=== PATIENT | female | born 1950 | race Caucasian/White ===

== ENCOUNTER → 2017-04-09 | Outpatient (CLI) | payer OTHER, BC | LOC: CIMAGING 13:58 | PROVIDERS: ATTEND Internal Medicine | DX: Z12.31 Encounter for screening mammogram for malignant neoplasm of breast (principal) | CPT/HCPCS: G0202 ==

== ENCOUNTER 2017-04-12 22:45 | Emergency (ER) | payer OTHER ==
[2017-04-12] MEDS ORDERED: ONDANSETRON 4 MG/2 ML VIAL IVP ONE (23:12)
--- NOTE | 2017-04-12 23:19 | CPEKG ---
Heart Rate: 75 RR Interval: 800 P-R Interval: 172 QRSD Interval: 94 QT Interval: 384 QTC Interval: 429 P [place]: 55 QRS [place]: 7 T Wave [place]: 29 EKG Severity - NORMAL ECG - EKG Impression: SINUS RHYTHM Electronically Signed By: Pedro Swanson 14-Apr-2017 21:36:24
[2017-04-12 23:29] LABS: % IMMATURE GRANULYOCYTES 0.5 % (0.0-1.1); ABSOLUTE IMMATURE GRANULOCYTES 0.05 10^3/uL (0.00-0.10); ADD DIFF? NO; ADD MORPH? NO; ADD SCAN? NO; ATYPICAL LYMPHOCYTE FLAG 0 (0-99); FRAGMENT RBC FLAG 0 (0-99); HEMATOCRIT 39.3 % (38.0-47.0); HEMOGLOBIN 13.1 g/dL (12.6-16.3); LEFT SHIFT FLG 0 (0-99); LIPEMIA HEMOLYSIS FLAG 80 (0-99); MEAN CELL HEMOGLOBIN 28.6 pg (27.9-34.1); MEAN CELL HEMOGLOBIN CONCENTR. 33.3 g/dL (32.4-36.7); MEAN CELL VOLUME 85.8 fL (81.5-99.8); MEAN PLATELET VOLUME 10.7 fL (8.7-11.7); PLATELET CLUMPS FLAG 0 (0-99); PLATELET COUNT 278 10^3/uL (150-400); RED BLOOD CELL COUNT 4.58 10^6/uL (4.18-5.33); RED CELL DISTRIBUTION WIDTH 12.6 % (11.5-15.2)
[2017-04-12 23:42] LABS: ALANINE AMINOTRANSFERASE 40 IU/L (9-52); ALBUMIN 4.3 g/dL (3.5-5.0); ALKALINE PHOSPHATASE 97 IU/L (38-126); ANION GAP 17 mEq/L (8-16); ASPARTATE AMINOTRANSFERASE 29 IU/L (14-46); BILIRUBIN,TOTAL 0.4 mg/dL (0.1-1.4); CALCIUM 10.1 mg/dL (8.5-10.4); CARBON DIOXIDE 20 mEq/l (22-31); CHLORIDE 105 mEq/L (97-110); CREATININE 0.7 mg/dL (0.6-1.0); GLOMERULAR FILTRATION RATE > 60; GLUCOSE 135 mg/dL (70-100); SODIUM 142 mEq/L (134-144); TOTAL PROTEIN 7.3 g/dL (6.3-8.2)
--- NOTE | 2017-04-12 23:42 | EDPHY ---
H & P Stated Complaint: Epigastric pain since 2099-Hx Irritable bowel. Time Seen by Provider: 04/12/17 22:57 HPI/ROS: 66-year-old female with history of hypertension, GERD, prior history of small- bowel obstruction, irritable bowel syndrome, status post hysterectomy Presents complaining of approximately 4 hr of diarrhea from 3:00 p.m. to 7:00 p.m. similar to her prior episodes of irritable bowel syndrome, followed by a severe crampy upper abdominal pain epigastric and right upper quadrant that began around 9:00 p.m.. Review of systems As per HPI General no fever no chills no weakness HEENT no eye pain no eye discharge. No eye redness, no sore throat Respiratory no cough, no shortness of breath Cardiac no chest pain, no peripheral edema GI positive abdominal pain, positive diarrhea, no constipation, no nausea, no vomiting no flank pain, no hematuria, no dysuria Musculoskeletal no myalgias, no joint pain Heme no easy bruising, no easy bleeding Endo no polyuria, no polydipsia Skin no rashes, no pruritus Neuro no syncope, no dizziness, no headaches Psych is no suicidal ideation, no homicidal ideation Source: Patient - Personal History Current Tetanus/Diphtheria Vaccine: Unsure Current Tetanus Diphtheria and Acellular Pertussis (TDAP): Unsure - Medical/Surgical History Hx Asthma: No Hx Chronic Respiratory Disease: No Hx Diabetes: No Hx Cardiac Disease: Yes Hx Renal Disease: No Hx Cirrhosis: No Hx Alcoholism: No Hx HIV/AIDS: No Hx Splenectomy or Spleen Trauma: No Other PMH: hysterectomy, seasonal allergies. c section,laproscopic surgery for sbo 2012. multiform myomectomy, irritable bowel syndrome-sees Dr Light. Hiatal hernia. GERD. T&A. Tonsilectomy. HTN - Family History Significant Family History: No pertinent family hx - Social History Smoking Status: Never smoked Alcohol Use: Rarely Drug Use: None - Physical Exam Exam: 66-year-old female HEENT atraumatic normocephalic, extraocular muscles intact, anicteric Oropharynx negative for erythema negative exudate, tolerating her own secretions Neck supple no meningismus Lungs clear to auscultation bilaterally Heart regular rate and rhythm without murmur rub or gallop Abdomen distended, bowel sounds quiet, no pulsatile mass, tenderness to palpation epigastric and right upper quadrant, no rebound no guarding Back no CVA tenderness, no step-offs, no spinal tenderness Extremities no cyanosis clubbing or edema Neuro alert and oriented, no focal deficits Constitutional: Initial Vital Signs Temperature (C) 37.1 C 04/12/17 22:55 Heart Rate 92 04/12/17 22:55 Respiratory Rate 18 04/12/17 22:55 Blood Pressure 170/95 H 04/12/17 22:55 O2 Sat (%) 93 04/12/17 22:55 O2 Delivery Mode Room Air Allergies/Adverse Reactions: SHANNAN Inhibitors Allergy (Intermediate, Verified 04/12/17 22:57) Rash adhesive Allergy (Intermediate, Verified 04/12/17 22:57) Rash Sulfa (Sulfonamide Antibiotics) Allergy (Intermediate, Verified 04/07/15 18:25) Hives Home Medications: Medication Instructions Recorded Loperamide HCl [Imodium 2 mg (*)] 2 mg PO DAILY PRN 08/26/13 Montelukast Sodium [Singulair] 10 mg PO DAILY@1800 08/26/13 Omeprazole [Prilosec 20 mg] 20 mg PO DAILY 08/26/13 Claritin 04/07/15 Losartan Potassium 03/28/16 Cephalexin 500 mg PO QID 7 Days #28 tablet 04/13/17 Dicyclomine [Bentyl 20 MG (*)] 20 mg PO QID PRN 7 Days #20 tab 04/13/17 Medical Decision Making - Diagnostics Imaging Results: Imaging Impressions Abdomen X-Ray 04/12/17 23:11 Impression: 1. No evidence for bowel obstruction. 2. Possible lingular infiltrate. If clinically indicated a lateral chest x-ray might be helpful. ED Course/Re-evaluation: Patient seen and evaluated for upper abdominal pain EKG-normal sinus rhythm, no acute ischemic changes, troponin negative CBC within normal limits, WBC 10, no left shift CMP anion gap 17, CO2 18, lactate 2.8 Electrolytes and creatinine within normal limits Lipase within normal limits Liver functions within normal limits Patient given 1 L normal saline, morphine 4 mg, Zofran 4 mg IV push A repeat lactate after fluids and antibiotics were given was within normal range , 1.9. Plain films to rule out bowel obstruction Nonspecific bowel gas pattern on preliminary read Right upper quadrant ultrasound to evaluate to rule out cholelithiasis for/ cholecystitis Right upper quadrant ultrasound shows multiple gallstones, hyperemia gallbladder wall, no fluid collection Common bile duct not dilated Consistent with cholecystitis Impression Cholecystitis Plan Patient given ceftriaxone 2 g IV piggyback Discussed admission with patient, current family situation with her on hospice makes her unable to stay in [facility] at present and she would prefer to delay any surgery if at all possible. I discussed the case with surgery on-call, Dr. Ben Pittman or Dr. Hairston are able to follow this patient on FridayApril 14 in their office In the meantime we will give her a prescription for antibiotics, and Bentyl. I have given the patient extensive education on reasons to return emergently, specifically fever, severe pain, vomiting. She understands. Differential Diagnosis: Differential diagnosis considered but not limited to: Gastritis, pancreatitis, cholecystitis, biliary colic, abdominal aortic aneurysm , bowel obstruction, irritable bowel, gastroenteritis - Data Points Laboratory Results: Laboratory Results 04/12/17 23:22 04/12/17 23:22 04/13/17 04/12/17 04/12/17 02:30 23:22 23:22 WBC 10.30 10^3/uL H 10^3/uL (3.80-9.50) RBC 4.58 10^6/uL 10^6/uL (4.18-5.33) Hgb 13.1 g/dL g/dL (12.6-16.3) Hct 39.3 % % (38.0-47.0) MCV 85.8 fL fL (81.5-99.8) MCH 28.6 pg pg (27.9-34.1) MCHC 33.3 g/dL g/dL (32.4-36.7) RDW 12.6 % % (11.5-15.2) Plt Count 278 10^3/uL 10^3/uL (150-400) MPV 10.7 fL fL (8.7-11.7) Neut % (Auto) 73.4 % % (39.3-74.2) Lymph % (Auto) 18.7 % % (15.0-45.0) [place] % (Auto) 5.3 % % (4.5-13.0) Eos % (Auto) 1.5 % % (0.6-7.6) Baso % (Auto) 0.6 % % (0.3-1.7) Nucleat RBC Rel Count 0.0 % % (0.0-0.2) Absolute Neuts (auto) 7.56 10^3/uL H 10^3/uL (1.70-6.50) Absolute Lymphs (auto) 1.93 10^3/uL 10^3/uL (1.00-3.00) Absolute Monos (auto) 0.55 10^3/uL 10^3/uL (0.30-0.80) Absolute Eos (auto) 0.15 10^3/uL 10^3/uL (0.03-0.40) Absolute Basos (auto) 0.06 10^3/uL 10^3/uL (0.02-0.10) Absolute Nucleated RBC 0.00 10^3/uL 10^3/uL (0-0.01) Immature Gran % 0.5 % % (0.0-1.1) Immature Gran # 0.05 10^3/uL 10^3/uL (0.00-0.10) VBG Lactic Acid 1.9 mmol/L D mmol/L (0.7-2.1) Sodium 142 mEq/L mEq/L (134-144) Potassium 4.0 mEq/L mEq/L (3.5-5.2) Chloride 105 mEq/L mEq/L (97-110) Carbon Dioxide 20 mEq/l L mEq/l (22-31) Anion Gap 17 mEq/L H mEq/L (8-16) BUN 16 mg/dL mg/dL (7-23) Creatinine 0.7 mg/dL mg/dL (0.6-1.0) Estimated GFR > 60 Glucose 135 mg/dL H mg/dL (70-100) Calcium 10.1 mg/dL mg/dL (8.5-10.4) Total Bilirubin 0.4 mg/dL mg/dL (0.1-1.4) AST 29 IU/L IU/L (14-46) ALT 40 IU/L IU/L (9-52) Alkaline Phosphatase 97 IU/L IU/L (38-126) Troponin I < 0.012 ng/mL ng/mL (0.000-0.034) Total Protein 7.3 g/dL g/dL (6.3-8.2) Albumin 4.3 g/dL g/dL (3.5-5.0) Lipase 129 IU/L IU/L (23-300) 04/12/17 23:22 WBC RBC Hgb Hct MCV MCH MCHC RDW Plt Count MPV Neut % (Auto) Lymph % (Auto) [place] % (Auto) Eos % (Auto) Baso % (Auto) Nucleat RBC Rel Count Absolute Neuts (auto) Absolute Lymphs (auto) Absolute Monos (auto) Absolute Eos (auto) Absolute Basos (auto) Absolute Nucleated RBC Immature Gran % Immature Gran # VBG Lactic Acid 2.8 mmol/L H mmol/L (0.7-2.1) Sodium Potassium Chloride Carbon Dioxide Anion Gap BUN Creatinine Estimated GFR Glucose Calcium Total Bilirubin AST ALT Alkaline Phosphatase Troponin I Total Protein Albumin Lipase Medications Given: Discontinued Medications Sodium Chloride (Ns) 1,000 mls @ 0 mls/hr IV ONCE ONE PRN Reason: Wide Open Stop: 04/12/17 23:44 Last Admin: 04/13/17 00:46 Dose: 1,000 mls Ceftriaxone Sodium 2 gm/ (Sodium Chloride) 100 mls @ 200 mls/hr IV EDNOW ONE PRN Reason: Protocol Stop: 04/13/17 01:42 Last Admin: 04/13/17 01:22 Dose: 100 mls Morphine Sulfate (Morphine) 4 mg IVP EDNOW ONE Stop: 04/12/17 23:14 Last Admin: 04/12/17 23:47 Dose: 2 mg Ondansetron HCl (Zofran) 4 mg IVP EDNOW ONE Stop: 04/12/17 23:13 Last Admin: 04/12/17 23:47 Dose: 4 mg Departure - Departure Disposition: Home, Routine, Self-Care Clinical Impression: Acute cholecystitis Condition: Good Instructions: Cholecystitis (ED), Biliary Colic (ED), Low Fat Diet (ED), Laparoscopic Cholecystectomy (DC) Referrals: Nirali Escobar MD [Primary Care Provider] - As per Instructions Petros Contreras MD [Medical Doctor] - As per Instructions Prescriptions: Cephalexin 500 mg PO QID 7 Days #28 tablet Dicyclomine [Bentyl 20 MG (*)] 20 mg PO QID PRN 7 Days #20 tab PRN Reason: Pain, Breakthrough
[2017-04-12] MEDS ORDERED: NS 1,000 ML IV ONE (23:43)
[2017-04-12 23:53] LABS: TROPONIN I < 0.012 ng/mL (0.000-0.034)
[2017-04-13 01:11] VITALS: RESP 16
[2017-04-13 03:03] VITALS: BP 139/72; PULSE 82; TEMP 98.4; O2SAT 94
== END 2017-04-13 03:04 | disposition home or self-care (01) ==
LOC: CED 22:45
DX: K81.0 Acute cholecystitis (principal); I10 Essential (primary) hypertension; E86.9 Volume depletion, unspecified; Z90.710 Acquired absence of both cervix and uterus
CPT/HCPCS: 74022; 76705; 93005; 96361; 96365; 96375; 99285; J0696; J2405; 80053-PO; 83605-PO; 83690-PO; 84484-PO; 85025-PO

== ENCOUNTER → 2017-04-25 | Outpatient (CLI) | payer OTHER | LOC: BMCIMAGING 10:19 | PROVIDERS: ATTEND Internal Medicine | DX: R92.2 Inconclusive mammogram (principal) | CPT/HCPCS: 76641; G0206 ==

== ENCOUNTER → 2017-05-21 | Outpatient (CLI) | payer OTHER ==
[~2017-05-21] MED LIST: BUPIVACAINE 0.5% 30 ML SDV ONE; LIDOCAINE 1% 300 MG/30 ML SDV ONE; THROMBIN (BOVINE) 5,000 UNIT VIAL TP ONE
== END ==
LOC: FIMAGING 07:33
PROVIDERS: ATTEND Internal Medicine
PROC: 0HBU3ZX Excision of Left Breast, Percutaneous Approach, Diagnostic (ICD-10-PCS; principal; 2017-05-21)
DX: D24.2 Benign neoplasm of left breast (principal); N60.92 Unspecified benign mammary dysplasia of left breast

== ENCOUNTER → 2017-10-22 | Outpatient (CLI) | payer OTHER | LOC: CIMAGING 10:28 | PROVIDERS: ATTEND Internal Medicine | DX: R91.1 Solitary pulmonary nodule (principal) | CPT/HCPCS: 36415-PO; 71046-PO; 82784-90; 83516-90 ==

== ENCOUNTER → 2017-11-11 | Outpatient (CLI) | payer OTHER | LOC: FIMAGING 11:39 | PROVIDERS: ATTEND Internal Medicine | DX: E04.1 Nontoxic single thyroid nodule (principal); K76.89 Other specified diseases of liver ==

== ENCOUNTER → 2018-04-10 | Outpatient (CLI) | payer OTHER | LOC: CIMAGING 09:35 | PROVIDERS: ATTEND Internal Medicine | DX: Z12.31 Encounter for screening mammogram for malignant neoplasm of breast (principal) ==

== ENCOUNTER → 2018-04-23 | Outpatient (CLI) | payer OTHER | LOC: FIMAGING 10:26 | PROVIDERS: ATTEND Internal Medicine | DX: Z13.820 Encounter for screening for osteoporosis (principal); M85.89 Other specified disorders of bone density and structure, multiple sites; Z78.0 Asymptomatic menopausal state ==